=== PATIENT | male | born 1935 | race Caucasian/White ===

== ENCOUNTER 2018-12-29 08:38 | Inpatient (IN) | payer OTHER ==
[~2018-12-29 08:38] MED LIST: DEXAMETHASONE 4 MG/ML 5 ML INJ; GLYCOPYRROLATE 0.4 MG INJ; NEOSTIGMINE 10 MG INJ; ONDANSETRON 4 MG INJ; ROCURONIUM 50 MG INJ
[2018-12-29] MEDS ORDERED: BUPIVACAINE 0.5% (SDV) 30 ML INJ (13:05)
[2018-12-29] MEDS: THROMBIN (BOVINE) 5,000 UNIT VIAL TP (15:24)
[2018-12-29] MEDS: HEPARIN 1000 UNITS/ML 10 ML INJ (15:24)
[2018-12-29] MEDS: GELATIN SIZE 100 SPONGE (15:24)
[2018-12-29] MEDS ORDERED: HEPARIN 1000 UNITS/ML 10 ML INJ (15:54)
[2018-12-29] MEDS ORDERED: PROTAMINE 250 MG INJ (16:50)
[2018-12-29] MEDS ORDERED: EPHEDrine SULFATE 50 MG/5 ML SYG IV (17:00)
[2018-12-29] MEDS ORDERED: HYDROmorphONE 0.5 MG/0.5 ML SYG IV ×2 (17:00)
[2018-12-29] MEDS ORDERED: LABETALOL HCL 20MG INJ IV (17:00)
[2018-12-29] MEDS ORDERED: DIPHENHYDRAMINE 50 MG INJ IV (17:00)
[2018-12-29] MEDS ORDERED: ALBUTEROL 0.083% (NEB) 2.5 MG/3 ML AMP HHN (17:00)
[2018-12-29] MEDS ORDERED: ONDANSETRON 4 MG INJ IV (17:00)
[2018-12-29] MEDS ORDERED: MIDAZOLAM 1 MG/ML 2 ML INJ IV (17:00)
[2018-12-29] MEDS ORDERED: METOCLOPRAMIDE 10 MG INJ IV (17:00)
[2018-12-29] MEDS ORDERED: MEPERIDINE 25 MG INJ IV (17:00)
[2018-12-29] MEDS ORDERED: LABETALOL HCL 20MG INJ (17:01)
[2018-12-29] MEDS ORDERED: ETOMIDATE 20 MG INJ (17:24)
[2018-12-29] MEDS ORDERED: CEFAZOLIN 1 GM INJ (17:24)
[2018-12-29] MEDS ORDERED: LIDOCAINE 2% (SDV) 5 ML INJ (17:24)
[2018-12-29] MEDS ORDERED: HYDROCODONE/APAP (5/325) TAB PO (18:00)
[2018-12-29] MEDS ORDERED: traMADol 50 MG TAB PO (18:00)
[2018-12-29] MEDS: hydrALAzine 20 MG INJ IV ×4 (18:01→19:45)
[2018-12-29] MEDS: SOD CHLORIDE 0.9% 1,000 ML IV (18:49)
[2018-12-29] MEDS ORDERED: DEXTROSE 50% 50 ML SYRINGE IV ×2 (19:00)
[2018-12-29] MEDS ORDERED: GLUCOSE GEL 15 GRAM TUBE PO ×2 (19:00)
[2018-12-29] MEDS ORDERED: GLUCAGON 1 MG INJ IM (19:00)
[2018-12-29] MEDS ORDERED: GLUCOSE GEL 15 GRAM TUBE BUCCAL (19:00)
[2018-12-29] MEDS: HYDROmorphONE 0.5 MG/0.5 ML SYG IV (19:47)
[2018-12-29] MEDS: CILOSTAZOL 100 MG TAB PO (21:45)
[2018-12-29] MEDS: ACCU-CHEK XX (22:00)
[2018-12-29] MEDS: TAMSULOSIN (SR) 0.4 MG CAP PO (22:08)
[2018-12-29] MEDS: ATORVASTATIN 40 MG TAB PO (22:08)
[2018-12-29] MEDS: HEPARIN 5,000 UNIT/1 ML VIAL SC (22:16)
[2018-12-30] MEDS: SOD CHLORIDE 0.9% 1,000 ML IV ×2 (01:57→13:51)
[2018-12-30] MEDS: morphine 2 MG INJ IV ×2 (03:19→09:33)
[2018-12-30 05:17] LABS: ADD MAN DIFF? NO
[2018-12-30 05:19] LABS: WHITE BLOOD COUNT 7.4 10^3/ul (4.8-10.8)
[2018-12-30 05:19] LABS: BASOPHIL # 0.1 10^3/ul (0.0-0.1); BASOPHILS % 1.1 % (0.0-2.0); EOSINOPHILS % 0.4 % (0.0-7.0); HEMATOCRIT 31.3 % (42.0-52.0); HEMOGLOBIN 10.5 g/dl (14.0-18.0); LYMPHOCYTES # 1.5 10^3/ul (0.8-2.9); LYMPHOCYTES % 20.3 % (15.0-51.0); MEAN CORPUSCULAR HEMOGLOBIN 32.3 pg (29.0-33.0); MEAN CORPUSCULAR HGB CONC 33.5 g/dl (32.0-37.0); MEAN CORPUSCULAR VOLUME 96.3 fl (82.0-101.0); MEAN PLATELET VOLUME 10.5 fl (7.4-10.4); MONOCYTE # 0.6 10^3/ul (0.3-0.9); MONOCYTES % 8.3 % (0.0-11.0); NEUTROPHIL # 5.2 10^3/ul (1.6-7.5); NEUTROPHILS % 69.4 % (39.0-77.0); PLATELET COUNT 179 10^3/UL (140-415); RED BLOOD COUNT 3.25 10^6/ul (4.70-6.10); RED CELL DISTRIBUTION WIDTH 13.6 % (11.5-14.5)
[2018-12-30] MEDS: HEPARIN 5,000 UNIT/1 ML VIAL SC ×2 (05:39→14:34)
[2018-12-30 05:52] LABS: ANION GAP 7 (5-13); BLOOD UREA NITROGEN 16 mg/dl (7-20); CALCIUM 8.4 mg/dl (8.4-10.2); CARBON DIOXIDE 23 mmol/L (21-31); CHLORIDE 112 mmol/L (97-110); CREATININE 1.13 mg/dl (0.61-1.24); GLUCOSE 132 mg/dl (70-220); SODIUM 142 mmol/L (135-144)
[2018-12-30 05:57] LABS: POTASSIUM 3.9 mmol/L (3.5-5.1)
[2018-12-30] MEDS: ACCU-CHEK XX ×2 (06:58→11:00)
[2018-12-30] MEDS: metFORMIN 500 MG TAB PO (09:14)
[2018-12-30] MEDS: LINAGLIPTIN 5 MG TABLET PO (09:14)
[2018-12-30] MEDS: CILOSTAZOL 100 MG TAB PO (09:14)
[2018-12-30] MEDS: CHOLECALCIFEROL 2,000 UNIT CAP PO (09:15)
[2018-12-30] MEDS: LOSARTAN 25 MG TAB PO (09:15)
[2018-12-30] MEDS: ASPIRIN (EC) 81 MG TAB PO (09:15)
== END 2018-12-30 15:35 | disposition home health service (06) | DRG 271 ==
LOC: REC 08:38 → ICU 17:41
PROVIDERS: Surgery
PROC: 04CH0ZZ Extirpation of Matter from Right External Iliac Artery, Open Approach (ICD-10-PCS; principal; 2018-12-29 13:30)
PROC: 047K0ZZ Dilation of Right Femoral Artery, Open Approach (ICD-10-PCS; 2018-12-29 13:30)
PROC: 04UK0KZ Supplement Right Femoral Artery with Nonautologous Tissue Substitute, Open Approach (ICD-10-PCS; 2018-12-29 13:30)
DX: E11.51 Type 2 diabetes mellitus with diabetic peripheral angiopathy without gangrene (principal); I70.92 Chronic total occlusion of artery of the extremities; I70.211 Atherosclerosis of native arteries of extremities with intermittent claudication, right leg; E78.5 Hyperlipidemia, unspecified; I10 Essential (primary) hypertension; I25.10 Atherosclerotic heart disease of native coronary artery without angina pectoris; N40.0 Benign prostatic hyperplasia without lower urinary tract symptoms; Z87.891 Personal history of nicotine dependence; Z79.82 Long term (current) use of aspirin
CPT/HCPCS: 80048; 82962; 85025; 86850; 86900; 86901; 87081; 88304; 88311; 97162